=== PATIENT | female | born 1935 ===

== ENCOUNTER 2021-02-28 07:25 | Inpatient (IN) | payer MEDICARE, OTHER ==
[~2021-02-28] VITALS: Ht 152.4 cm; Wt 57.2 kg
[~2021-02-28 07:25] MED LIST: LORAZEPAM0.5 MG PO
[2021-02-28 07:53] LABS: HEMOGLOBIN 13.4 gm/dl (12.3-15.3); RED BLOOD COUNT 4.18 M/UL (4.00-5.10); WHITE BLOOD COUNT 9.2 K/UL (4.5-11.0)
[2021-02-28] MEDS ORDERED: LIPITOR TAB 2020 MG PO (10:14)
[2021-02-28] MEDS ORDERED: SYNTHROID75 MCG PO (10:15)
[2021-02-28] MEDS ORDERED: DORZOLAMIDE-TIM10 ML EYEBOTH (10:47)
[2021-02-28] MEDS ORDERED: LISINOPRIL20 MG PO (10:48)
[2021-02-28] MEDS ORDERED: GABAPENTIN100 MG PO (10:48)
[2021-02-28] MEDS ORDERED: FAMOTIDINE20 MG PO (10:49)
[2021-02-28] MEDS ORDERED: MAGNESIUM OXID400 M1 PO (10:50)
[2021-02-28] MEDS ORDERED: MEGACE 400400 MG/10 PO (10:51)
[2021-03-01 00:58] LABS: HEMOGLOBIN 12.7 gm/dl (12.3-15.3); RED BLOOD COUNT 4.04 M/UL (4.00-5.10); WHITE BLOOD COUNT 8.7 K/UL (4.5-11.0)
[2021-03-02 18:48] LABS: HEMOGLOBIN 10.6 gm/dl (12.3-15.3); RED BLOOD COUNT 3.38 M/UL (4.00-5.10); WHITE BLOOD COUNT 6.4 K/UL (4.5-11.0)
[2021-03-02 19:37] LABS: BUN/CREATININE RATIO 68 (0-10)
[2021-03-03 06:12] LABS: HEMOGLOBIN 9.8 gm/dl (12.3-15.3); RED BLOOD COUNT 3.15 M/UL (4.00-5.10); WHITE BLOOD COUNT 5.7 K/UL (4.5-11.0)
[2021-03-03 06:32] LABS: BUN/CREATININE RATIO 60 (0-10)
--- NOTE | 2021-03-04 02:20 | NUR ---
GLENROY GONZALEZ APPLIED, TEMP OF 95.2
[2021-03-04 04:35] LABS: HEMOGLOBIN 9.2 gm/dl (12.3-15.3); RED BLOOD COUNT 3.04 M/UL (4.00-5.10); WHITE BLOOD COUNT 4.7 K/UL (4.5-11.0)
[2021-03-04 04:55] LABS: BUN/CREATININE RATIO 51 (0-10)
[2021-03-05 06:51] LABS: HEMOGLOBIN 10.6 gm/dl (12.3-15.3); WHITE BLOOD COUNT 5.4 K/UL (4.5-11.0)
[2021-03-05 06:52] LABS: RED BLOOD COUNT 3.37 M/UL (4.00-5.10)
[2021-03-05 07:34] LABS: BUN/CREATININE RATIO 35 (0-10)
[2021-03-06 06:25] LABS: HEMOGLOBIN 9.3 gm/dl (12.3-15.3); WHITE BLOOD COUNT 4.5 K/UL (4.5-11.0)
[2021-03-06 06:27] LABS: RED BLOOD COUNT 2.98 M/UL (4.00-5.10)
[2021-03-06 06:55] LABS: BUN/CREATININE RATIO 30 (0-10)
[2021-03-06] MEDS ORDERED: VANCOMYCIN HCL125 MG PO (10:18)
== END 2021-03-06 14:15 | DRG 371 ==
LOC: ER1 07:25 → MED SURG 4 09:49 → CDU 09:49 → MED SURG 4 11:54
PROVIDERS: Internal Medicine; Physician Assistant Medical; ADMIT Internal Medicine
DX: A04.72 Enterocolitis due to Clostridium difficile, not specified as recurrent (principal); J18.9 Pneumonia, unspecified organism; E87.0 Hyperosmolality and hypernatremia; N30.00 Acute cystitis without hematuria; E46 Unspecified protein-calorie malnutrition; E87.2 Acidosis; Z20.822 Contact with and (suspected) exposure to COVID-19; R91.1 Solitary pulmonary nodule; I48.91 Unspecified atrial fibrillation; Z66 Do not resuscitate; E86.0 Dehydration; R68.0 Hypothermia, not associated with low environmental temperature; E03.9 Hypothyroidism, unspecified; I73.9 Peripheral vascular disease, unspecified; E78.5 Hyperlipidemia, unspecified; I12.9 Hypertensive chronic kidney disease with stage 1 through stage 4 chronic kidney disease, or unspecified chronic kidney disease; N18.30 Chronic kidney disease, stage 3 unspecified; I51.7 Cardiomegaly; H40.9 Unspecified glaucoma; K21.9 Gastro-esophageal reflux disease without esophagitis; F03.90 Unspecified dementia, unspecified severity, without behavioral disturbance, psychotic disturbance, mood disturbance, and anxiety; B96.20 Unspecified Escherichia coli [E. coli] as the cause of diseases classified elsewhere; B96.4 Proteus (mirabilis) (morganii) as the cause of diseases classified elsewhere; R00.1 Bradycardia, unspecified; L89.211 Pressure ulcer of right hip, stage 1; F41.9 Anxiety disorder, unspecified; E21.3 Hyperparathyroidism, unspecified; E83.52 Hypercalcemia; Z74.01 Bed confinement status; Z79.899 Other long term (current) drug therapy; Z68.24 Body mass index [BMI] 24.0-24.9, adult
CPT/HCPCS: 36415; 36600; 51702; 70450; 71045; 80048; 80053; 81001; 82533; 82803; 83605; 83735; 84100; 84439; 84443; 85025; 85027; 87040; 87077; 87086; 87186; 92526; 92610; 93005; 94760; 99284; J0696; J1335; J1650; J7030; U0002